=== PATIENT | male | born 1995 | race Caucasian/White ===

== ENCOUNTER 2016-11-06 18:35 | Emergency (ER) | payer OTHER, BC ==
[2016-11-06] MEDS ORDERED: IBUPROFEN 600 MG TABLET ONE (19:40)
[2016-11-06] MEDS ORDERED: ACETAMINOPHEN 325 MG TABLET ONE (19:53)
== END 2016-11-06 20:08 | disposition home or self-care (01) ==
LOC: ED 18:35
DX: S16.1XXA Strain of muscle, fascia and tendon at neck level, initial encounter (principal); V43.52XA Car driver injured in collision with other type car in traffic accident, initial encounter; Y92.410 Unspecified street and highway as the place of occurrence of the external cause
CPT/HCPCS: 99283; 99282; A9270